=== PATIENT | female | born 1950 ===

== ENCOUNTER 2019-07-20 06:00 | Day surgery (SDC) | payer OTHER ==
[~2019-07-20] VITALS: Ht 154.9 cm; Wt 125.6 kg
[~2019-07-20 06:00] MED LIST: COZAAR50 MG PO; XALATAN
[2019-07-20] MEDS ORDERED: LATANOPROST2.5 ML (07:57)
[2019-07-21] MEDS ORDERED: Tylenol #3 PO (09:05)
== END 2019-07-21 08:00 | disposition home or self-care (01) ==
LOC: CIR.AMB 06:00 → O/R 07:30 → EDSTATUS 07:30 → O/R 08:30 → OB/GYN 12:23 → O/R 12:23 → CIR.AMB 07-21 08:00 → O/R 07-21 11:30 → OB/GYN 07-21 11:30
DX: D25.1 Intramural leiomyoma of uterus (principal); D25.0 Submucous leiomyoma of uterus; D25.2 Subserosal leiomyoma of uterus; N84.0 Polyp of corpus uteri; N72 Inflammatory disease of cervix uteri; N81.11 Cystocele, midline